=== PATIENT | female | born 1980 | race Two or more races ===

== ENCOUNTER 2021-11-15 17:51 | Emergency (ER) | payer MEDICAID ==
[~2021-11-15] VITALS: Ht 162.6 cm; Wt 74.8 kg
--- NOTE | 2021-11-15 18:32 | NUR ---
BIB SELF C/O SOAR THROAT X FEW DAYS. AAOX4, BREATHING EVEN AND UNLABORED, NOT IN RESP DISTRESS. POX 98% ON RA. WILL CONTINUE TO MONITOR.
[2021-11-15] MEDS ORDERED: LORAZEPAM INJ 2 MG/ML VIAL ONE (18:43)
[2021-11-15] MEDS ORDERED: LORAZEPAM INJ 2 MG/ML VIAL IM ONE (19:00)
[2021-11-15] MEDS ORDERED: PRED50TA PO (19:46)
--- NOTE | 2021-11-15 19:57 | NUR ---
Patient discharged to home in stable condition. Written and verbal after care instructions given. Patient verbalizes understanding of instruction. PT ambulatory with a steady gait
[2021-11-15 20:40] VITALS: BP 127/79
== END 2021-11-15 20:00 | disposition home or self-care (01) ==
LOC: ER 18:25
DX: R07.0 Pain in throat (principal); Z60.2 Problems related to living alone; Z79.52 Long term (current) use of systemic steroids
CPT/HCPCS: 70490; 96372; 99284; J2060